=== PATIENT | female | born 1960 | race Caucasian/White ===

== ENCOUNTER → 2018-11-26 | Day surgery (SDC) | payer BC ==
[2018-11-20 15:04] VITALS: BMI 26.1
[~2018-11-26] MED LIST: ACETAMINOPHEN 1000 MG/100 ML VIAL (NON FORMULARY) IVPB ONE; ACETAMINOPHEN INJECTION 100 ML IVPB ONE; DEXAMETHASONE SOD PHOSPHATE 4 MG/1 ML VIAL ONE; GLYCOPYRROLATE 0.2 MG/1 ML VIAL ONE; KETAMINE HCL 500 MG/10 ML VIAL ONE; KETOROLAC TROMETHAMINE 30 MG/1 ML VIAL ONE; LACTATED RINGERS SOLUTION 1,000 ML IV SCH; MIDAZOLAM HCL 2 MG/2 ML SINGLE DOSE VIAL ONE; NEOSTIGMINE METHYLSULFATE 0.5 MG/ML - 10 ML MDV ONE; ONDANSETRON 4 MG/2 ML VIAL IVPB PRN; ONDANSETRON 4 MG/2 ML VIAL IVPUSH PRN; ONDANSETRON 4 MG/2 ML VIAL ONE; PROMETHAZINE HCL 25 MG/1 ML VIAL IVPUSH PRN; PROPOFOL 20 ML ONE; ROCURONIUM BROMIDE 50 MG/5 ML SYRINGE ONE; SEVOFLURANE 250 ML BTL ONE; ceFAZolin SODIUM 1 GM VIAL ONE; ePHEDrine SULFATE 50 MG/1 ML AMPULE ONE; fentaNYL CITRATE 250 MCG/5 ML VIAL ONE; oxyCODONE HCL 5 MG TABLET PO PRN
--- NOTE | 2018-11-26 19:19 | OP ---
Operative Note - Note: Operative Date: 11/26/18 Pre-Operative Diagnosis: ruptured breast implant and bilateral capsular contracture Operation: bialteral capsulectomy with implant removal and mastopexy Findings: above Post-Operative Diagnosis: Same as Pre-op Surgeon: Stuart Vides Labor Supervisor: Raghavendra Nino Anesthesia: General Operative Report Dictated: Yes
[2018-11-26 19:30] VITALS: TEMP 97.6
[2018-11-26 19:59] VITALS: BP 109/63; PULSE 85
--- NOTE | 2018-11-26 23:44 | OP ---
DATE OF OPERATION: 11/26/2018 TITLE OF PROCEDURE: Bilateral periprosthetic capsulectomy, right sided removal of intact mammary prosthesis, left sided removal of mammary prosthetic components and free silicone from a ruptured implant. Bilateral mastopexy. ATTENDING SURGEON: Stuart Vides M.D. DESCRIPTION OF PROCEDURE: Patient seen in the holding area. The patient is marked for nipple to be sited at 20.5 cm from the sternal notch bilaterally. Circumvertical mastopexy is planned. The patient is counseled on risks, benefits, and alternatives to the procedure including the uncertainty of the nature given the ruptured implant and the extent of the tissue replacement from the longstanding breast prosthesis as well as the incisions resulting scars. She understands and agrees to proceed. The patient is given a gram of Ancef preoperatively, brought to the operating room, placed in a supine position. She was prepped and draped in the standard surgical fashion after anesthesia was given. Timeout was called, patient procedure, side, sites were verified. At this point, attention was first directed toward the right side where the vertical limb of the planned circumvertical mastopexy is then made. Dissection carried down to the level of the periprosthetic capsule. Capsulotomy is performed, and the implant is removed. This is a textured silicone gel Allergan implant which happens to be one of the implants which are being recalled. The implant capsule is then dissected from the surrounding tissues. The entire complete capsulectomy is performed which leaves a pocket of tissue. Hemostasis is assured and copious irrigation is performed. Skin is tailor tacked. Attention is then directed towards the contralateral side. On the contralateral side, a mirror image procedure is performed with the same incision; however, upon capsulotomy the implant is noted to be ruptured with free floating silicone gel. The implant shell and the free silicone are removed piecemeal. It is also identified where the free silicone is extracapsular and dissected posterior to the capsule. This is likewise removed. It should also be noted that a secondary capsule has developed where this free silicone has been sitting. A complete capsulectomy has been performed after copious irrigation on this side. 3 L of pulsed lavage normal saline is then used to remove any residual silicone that was in the breast. Hemostasis meticulously achieved. It should be noted that on the right side a segment of stratus that had been placed by a previous surgeon to correct implant malposition was also removed as part of the total capsulectomy. Once hemostasis is achieved and pockets are copiously irrigated, patient is brought to a seated position for confirming the incisions for the mastopexy. Circumvertical technique is planned. The nipple areolar is traced along its existing periareolar scar. The skin in between the periareolar pattern and the nipple areolar is deepithelialized. The nipple is then translocated. A superior pedicle is developed so that medial and lateral pillars and breast tissue are able to be brought together to fill the inferior pole. With the patient in a seated upright position, tailor tacking of skin and breast glandular tissue are performed in order to achieve the desired shape. It should be noted that with removal of the breast implant, the implant had occupied the inferior pole of the breast mound on both sides leaving a deficit of tissue in the inferior pole, rearrangement of the glandular tissue was required in order to restore inferior pole fullness. The skin is then tailor tacked after copious irrigation, hemostasis was achieved. The markings are finalized. A size 10 flat Twin drains are brought out to the inferior most extent of the circumvertical pattern, the drains are secured with 2-0 silk drain suture. This is placed in the capsulectomy pocket. The closure is then performed imbricating the inferior pole with 3-0 Monocryl suture. The vertical limb is closed with a series of interrupted buried deep dermal 3-0 Monocryl suture and a running subcuticular 3-0 Monocryl suture. The circumvertical areolar inset is closed with a series of interrupted buried deep dermal 3-0 Monocryl suture followed by a running subcuticular 4-0 Monocryl suture. The patient was seated in upright position. There was good inferior pole fill on both sides. There is good symmetry and a natural shape to the breast bilaterally. The nipples are pink and viable. Dressings are applied with Steri-Strips, 4x4 gauze, ABD gauze, a surgical bra. The patient was awoken from anesthesia having tolerated procedure well, transferred to recovery without complication. Fernandez [id number]
--- NOTE | 2018-11-28 07:42 | SURG ---
Surgery Instant Printer Operator Note Instant Printer Operator: Raghavendra Nino PA-C (Suzy) Date of Service: 11/26/18 Diagnosis: Bilateral capsular contracture, ruptured left breast implant Procedure: Bilateral periprosthetic capsulectomy, right sided removal of intact mammary prosthesis, left sided removal of mammary prosthetic components and free silicone from a ruptured implant. Bilateral mastopexy I was present for the entirety of the operative procedure. For further detail, please refer to operative report. Visit type - Case Type Case Type: Scheduled - Emergency Emergency Visit: No - New patient This patient is new to me today: Yes Date on this admission: 11/28/18 - Critical Care Critical Care patient: No
--- NOTE | 2018-11-28 16:14 | PATH ---
Surgical Pathology Report Patient Name: [facility]. Rec. #: [id number] /Age/Gender: 1960 (Age: 58) / F Account: [id number] Location: [facility] AMBULATORY Taken: 11/26/2018 Received: 11/26/2018 Reported: 11/28/2018 Physicians: Stuart Vides Specimen(s) Received A: RIGHT BREAST EXPLANT B: RIGHT BREAST CAPSULE C: LEFT BREAST EXPLANT D: LEFT BREAST CAPSULE Clinical History Bilateral capsular contracture, ruptured Final Diagnosis A. EXPLANT, RIGHT BREAST: IMPLANT, DESCRIBED (GROSS EXAMINATION ONLY). B. CAPSULE, RIGHT BREAST, CAPSULECTOMY: FIBROUS CAPSULE SHOWING CHRONIC INFLAMMATION AND FOREIGN BODY GIANT CELL REACTION. SCANT BENIGN BREAST TISSUE. C. EXPLANT, LEFT BREAST: RUPTURED IMPLANT, DESCRIBED (GROSS EXAMINATION ONLY). D. CAPSULE, LEFT BREAST, CAPSULECTOMY: FIBROUS CAPSULE SHOWING REACTIVE SYNOVIAL METAPLASIA, CHRONIC INFLAMMATION AND EXTENSIVE HISTIOCYTIC/GIANT CELL REACTION WITH ASSOCIATED SILICONE MATERIAL. SKELETAL MUSCLE AND FIBROADIPOSE TISSUE. Electronically Signed Kya Zapata M.D. Gross Description A. Received without fixative, labeled "right breast explant" is an intact breast implant having a diameter of 15 cm with a depth of up to 4 cm. For gross examination only. B. Received in formalin, "right breast capsule" are three portions of amanda fibromembranous tissue, consistent with capsule and fibroadipose tissue, ranging from 8.3-11.5 cm in greatest dimension. Burr Grinder tissue is submitted in three cassettes. C. Received without fixative, labeled "left breast explant" is a markedly disrupted breast implant with extruded silicone material, having a diameter of 13.5 cm with a depth of up to 2.8 cm. For gross examination only. D. Received in formalin, labeled "left breast capsule" are multiple portions of fibromembranous tissue, consistent with capsule and fibroadipose tissue, ranging from 1.5-13.5 cm in greatest dimension, with an aggregate of 13.5 x 9.5 x 0.5 cm. Burr Grinder tissue is submitted in three cassettes.
== END | disposition home or self-care (01) ==
LOC: FASU 10:02
PROVIDERS: ATTEND Plastic Surgery
PROC: 0HSV0ZZ Reposition Bilateral Breast, Open Approach (ICD-10-PCS; 2018-11-26)
PROC: 0HPU0JZ Removal of Synthetic Substitute from Left Breast, Open Approach (ICD-10-PCS; principal; 2018-11-26 14:13)
PROC: 0HPT0JZ Removal of Synthetic Substitute from Right Breast, Open Approach (ICD-10-PCS; 2018-11-26 14:13)
DX: T85.41XA Breakdown (mechanical) of breast prosthesis and implant, initial encounter (principal); T85.44XA Capsular contracture of breast implant, initial encounter; Y83.8 Other surgical procedures as the cause of abnormal reaction of the patient, or of later complication, without mention of misadventure at the time of the procedure; Y92.89 Other specified places as the place of occurrence of the external cause
CPT/HCPCS: 88300-TC; 88304-TC; 94760; J0131

== ENCOUNTER 2019-01-17 16:42 | Inpatient (IN) | payer BC ==
[2019-01-17 16:51] VITALS: BMI 24.4
--- NOTE | 2019-01-17 17:19 | PDOC ---
History of Present Illness - General Chief Complaint: Bite Stated Complaint: CAT BITE, NAUSEA Time Seen by Provider: 01/17/19 16:58 History Source: Patient Exam Limitations: No Limitations - History of Present Illness Initial Comments: Pt is a 58 yo F, with PMH of hypothyroidism, who is presenting with worsening redness, pain, and swelling to her L index finger after being bitten by a cat yesterday morning. Pt states she was attempting to capture a stray cat while in her garage yesterday at 8 am, and she was bitten on the tip of the L index finger while trying to grab the cat. Pt states "the finger got swollen up," and she went to [facility] today, where she was started on 600 mg PO clindamycin TID. Pt is UTD on her tetanus vaccine, and the cat is currently in quarantine at the vet's office. Pt took one dose of the medication, which made her have nausea and chills. Pt noticed her finger began to feel "more tight" from the swelling, with the redness extending down to the base of her finger. Pt denies any fevers, headache, vision changes, syncope, chest pain, palpitations, SOB, vomiting, abdominal pain, urinary symptoms, diarrhea/constipation, or leg swelling. Allergies: NKDA PCP: Dr. Ross Social: Pt denies any cigarette, alcohol, or drug use. Pt denies any recent travel or sick contacts. Surgical: R thumb mass removal. Breast implant capsulectomy (rupture repair) Family: no relevant history. 01/17/19 18:45 01/17/19 19:01 Past History - Travel Traveled outside of the country in the last 30 days: No Close contact w/someone who was outside of country & ill: No - Past Medical History Allergies/Adverse Reactions: Allergies Allergy/AdvReac Type Severity Reaction Status Date / Time No Known Drug Allergies Allergy Verified 01/17/19 16:47 Home Medications: Ambulatory Orders Levothyroxine [Synthroid -] 175 mcg PO DAILY 02/20/17 Clindamycin [Cleocin -] 300 mg PO TID 01/17/19 Anemia: No Asthma: (H/O ALLERGY INDUCED ASTHMA,HASN'T HAD INHALER IN 1 YEAR;H/O PNEUMONIA X 5) Cancer: Yes (papillary thyroid) Cardiac Disorders: No CVA: No COPD: No CHF: No Dementia: No Diabetes: No GI Disorders: No Disorders: No HTN: No Hypercholesterolemia: No Liver Disease: No Seizures: No Thyroid Disease: Yes - Surgical History Abdominal Surgery: No Appendectomy: No Cardiac Surgery: No Cholecystectomy: No Lung Surgery: No Neurologic Surgery: No Orthopedic Surgery: No - Psycho Social/Smoking Cessation Hx Smoking History: Never smoked Have you smoked in the past 12 months: No Information on smoking cessation initiated: No Hx Alcohol Use: (social) Drug/Substance Use Hx: No Substance Use Type: Alcohol Hx Substance Use Treatment: No Review of Systems - Review of Systems Able to Perform ROS?: Yes Is the patient limited Estonian proficient: No Constitutional: Yes: Chills, Weight Stable. No: Diaphoresis, Fever, Loss of Appetite, Malaise, Weakness HEENTM: No: Recent change in vision, Nose Congestion, Throat Pain, Throat Swelling, Difficulty Swallowing Respiratory: No: Cough, Orthopnea, Shortness of Breath Cardiac (ROS): No: Chest Pain, Irregular Heart Rate, Lightheadedness, Palpitations, Syncope, Chest Tightness ABD/GI: Yes: Nausea. No: Constipated, Diarrhea, Poor Appetite, Poor Fluid Intake, Vomiting, Abdominal cramping : No: Burning, Dysuria, Frequency, Pain, Urgency Musculoskeletal: Yes: See HPI, Joint Pain, Joint Swelling. No: Back Pain, Neck Pain Integumentary: Yes: See HPI, Erythema. No: Bruising, Rash Neurological: No: Headache, Numbness, Weakness, Unsteady Gait, Dizziness Psychiatric: No: Sleep Pattern Change, Change in Appetite Endocrine: No: Increased Urine, Change in Weight Hematologic/Lymphatic: No: Anemia, Blood Clots, Easy Bleeding, Easy Bruising All Other Systems: Reviewed and Negative *Physical Exam - Vital Signs Last Vital Signs Temp Pulse Resp BP Pulse Ox 98.2 F 99 H 18 138/80 100 01/17/19 16:42 01/17/19 16:42 01/17/19 16:42 01/17/19 16:42 01/17/19 16:42 - Physical Exam HR 99, pt afebrile. Pt appears anxious, but in NAD. Normal body habitus. Pt alert and oriented x3. early childhood associate teacher generally intact, muscular strength and sensation intact. No midline spinal tenderness, step-offs, or crepitus. L index finger held in passive flexion with edema of the finger to the base of MCP. Tenderness with flexion of index finger against both flexion and extension. Erythema of entire L index finger to base of MCP, with no streaking of hand or wrist. Radial pulses intact b/l. Capillary refill <2 secs of fingers b/l. Head normocephalic, atraumatic. Eyes PERRLA, EOMI. Oropharynx without erythema or exudates, no LAD b/l. No nasal congestion. Hearing intact. Clear heart sounds, S1/S2, no JVD, b/l pedal edema, or heart murmur. Clear lung sounds, no respiratory distress, wheezes, crackles, or accessory muscle use. No abdominal or CVA tenderness to palpation, no rebound, no guarding. Abdomen soft, non-distended, and with normoactive bowel sounds. Skin otherwise without jaundice or rash, except as noted above. 01/17/19 18:52 ED Treatment Course - LABORATORY CBC & Chemistry Diagram: 01/17/19 18:00 01/17/19 18:00 Medical Decision Making - Medical Decision Making Pt was seen at bedside, also will be seen by attending Dr. Mcdonald. Pt presenting with complaints of swelling, pain, and redness to the L index finger after sustaining a cat bite. Finger edematous, erythematous, held in passive flexion, with tenderness while flexing against resistance, concerning for flexor tenosynovitis. Provided 4 mg SL zofran, 1 g ofirmev, IV unasyn and vancomycin for improvement of antibiotic coverage (tenosynovitis with cat bite), nausea, and pain. Will continue to reassess pt and monitor for symptomatic improvement. ECG: NSR, intervals WNL (HR 85, WY 148, QRS 78, QTc 428). TWIs in V2, with no significant ST segment changes. No prior for comparison. 01/17/19 18:56 Labs WNL Paged hospitalist team for admission at 18:10. Pending call from admitting team. 01/17/19 19:00 Admitted to [facility] (Dr. Calero). PT stable and receiving abx. 01/17/19 19:06 Discharge - Discharge Information Problems reviewed: Yes Clinical Impression/Diagnosis: Flexor tenosynovitis of finger Condition: Stable - Admission Yes - Follow up/Referral Referrals: Olvin Ross MD [Primary Care Provider] - - Patient Discharge Instructions - Post Discharge Activity
[2019-01-17] MEDS ORDERED: ONDANSETRON *ODT* 4 MG TABLET SL ONE (17:40)
[2019-01-17] MEDS ORDERED: AMPICILLIN NA/SULBACTAM NA 3 GM in SODIUM CHLORIDE 100 ML IVPB ONE (17:45)
[2019-01-17] MEDS ORDERED: ONDANSETRON *ODT* 4 MG TABLET ONE (17:53)
[2019-01-17] MEDS ORDERED: AMPICILLIN NA/SULBACTAM NA 3 GM VIAL ONE (17:53)
[2019-01-17] MEDS ORDERED: VANCOMYCIN 1,000 MG in DEXTROSE 5%-WATER - 250 ML IVPB ONE (17:54)
[2019-01-17] MEDS ORDERED: ACETAMINOPHEN 1000 MG/100 ML VIAL (NON FORMULARY) IVPB ONE (18:06)
--- NOTE | 2019-01-17 18:06 | PDOC ---
Attending Attestation - Resident Resident Name: Anahy Meléndez - ED Attending Attestation I have performed the following: I have examined & evaluated the patient, The case was reviewed & discussed with the resident, I agree w/resident's findings & plan, Exceptions are as noted - HPI HPI: 01/17/19 18:02 58 F with hypothyroidism presenting to ED with pain and swelling to L 2nd digit. Pt was attempting to rescue a stray kitten yesterday when she was bitten on her L index finger. Today, she noticed the finger had become very swollen and painful. Pt went to urgent care and was prescribed Clindamycin, but after taking one dose of it, she felt very ill. Pt denies any F/C. Denies any other injuries. - Physicial Exam PE: 01/17/19 18:05 "GENERAL: Awake, alert, and fully oriented, in no acute distress. HEAD: No signs of trauma EYES: PERRLA, EOMI, sclera anicteric, conjunctiva clear ENT: Auricles normal inspection, hearing grossly normal, nares patent, oropharynx clear without exudates. Moist mucosa NECK: Nontender, no stepoffs, Normal ROM, supple, no lymphadenopathy, JVD, or masses LUNGS: Breath sounds equal, clear to auscultation bilaterally. No wheezes, and no crackles HEART: Regular rate and rhythm, normal S1 and S2, no murmurs, rubs or gallops ABDOMEN: Soft, nontender, normoactive bowel sounds. No guarding, no rebound. No masses EXTREMITIES: + L 2nd digit with puncture wound to fingertip, + edema and erythema extending to palm, + pain with passive extension of finger NEUROLOGICAL: Cranial nerves II through XII intact. 5/5 strength and sensation in all extremities, Normal speech, normal gait, normal cerebellar function SKIN: Warm, Dry, normal turgor, no rashes or lesions noted. - Medical Decision Making 01/17/19 18:06 58 F with likely flexor tenosynovitis of L 2nd finger due to cat bite. - Labs - IV abx - Hand c/s
[2019-01-17] MEDS ORDERED: VANCOMYCIN 1,000 MG VIAL (RESTRICTED TO ID ONLY) ONE (18:13)
[2019-01-17 18:18] LABS: EOS % 0.2 % (0-4.5); HEMOGLOBIN 13.2 GM/dl (10.7-15.3)
[2019-01-17 18:21] LABS: BASO % 1.5 % (0-2.0); HEMATOCRIT 39.7 % (32.4-45.2); LYMPH % 8.3 % (8-40); MCH 29.7 pg (25.7-33.7); MCHC 33.2 g/dl (32.0-36.0); MEAN CELL VOLUME 89.7 fl (80-96); MEAN PLT VOLUME 10.1 fl (7.5-11.1); MONO % 0.3 % (3.8-10.2); NEUT % 89.7 % (42.8-82.8); PLATELET COUNT 156 K/MM3 (134-434); RBC 4.43 M/mm3 (3.60-5.2); RDW 12.1 % (11.6-15.6); WHITE BLOOD COUNT 8.8 K/mm3 (4.0-10.8)
[2019-01-17 18:27] LABS: ALBUMIN 3.9 g/dl (3.4-5.0); BILIRUBIN,TOTAL 0.8 mg/dl (0.2-1); CREATININE 0.6 mg/dl (0.55-1.3); POTASSIUM 3.7 mmol/L (3.5-5.1); TOT PROT 6.5 g/dl (6.4-8.2)
[2019-01-17 18:58] LABS: CALCIUM 8.9 mg/dl (8.5-10)
[2019-01-17] MEDS ORDERED: ACETAMINOPHEN INJECTION 100 ML IVPB ONE (19:22)
[2019-01-18] MEDS: AMPICILLIN NA/SULBACTAM NA 3 GM in SODIUM CHLORIDE 100 ML IVPB SCH ×4 (02:19→16:40)
[2019-01-18] MEDS ORDERED: AMPICILLIN NA/SULBACTAM NA 3 GM VIAL ONE ×3 (03:12→15:19)
[2019-01-18] MEDS ORDERED: SODIUM CHLORIDE 100 ML IVPB ONE ×3 (03:12→15:19)
[2019-01-18] MEDS ORDERED: LEVOTHYROXINE NA 75 MCG TABLET (FP) ONE (05:28)
[2019-01-18] MEDS ORDERED: LEVOTHYROXINE NA 100 MCG TABLET (FP) ONE (05:28)
[2019-01-18] MEDS ORDERED: ACETAMINOPHEN 325 MG TABLET (FP) PO PRN (05:34)
[2019-01-18] MEDS ORDERED: ACETAMINOPHEN 1000 MG/100 ML VIAL (NON FORMULARY) IVPB ONE (05:46)
[2019-01-18] MEDS ORDERED: LEVOTHYROXINE 100 MCG, LEVOTHYROXINE 75 MCG PO SCH (07:00)
--- NOTE | 2019-01-18 08:07 | HP ---
CHIEF COMPLAINT: Cat bite to finger PCP: Dr. Ross HISTORY OF PRESENT ILLNESS: 58 year-old female with a PMH significant for hypothyroidism, presented to the ED for evaluation of a cat bite to her left index finger which occurred on 01/16 at 8:00am (~30 hours prior to presentation). Patient was attempting to collect a stray cat that was in her garage and the cat bit her on the tip of her left index finger. On 01/17 the finger swelled up and patient went to an urgent care center where she was started on PO clindamycin. Patient took one dose and shortly thereafter developed nausea and chills. The finger continued to swell and redness extended down to the base of the finger so patient came to the ED. Patient denies any further episodes of sweats, chills. ER course was notable for: (1) Vanc 1g x 1; unasyn 3g x 1 Recent Travel: No PAST MEDICAL HISTORY: Hypothyroidism PAST SURGICAL HISTORY: Right thumb mass removal Breast implant capsulectomy (rupture repair) Social History: works as a nurse, former ICU nurse at [employer] Smoking: no Alcohol: no Drugs: no Family history: non-contributory Allergies No Known Drug Allergies Allergy (Verified 01/17/19 16:47) HOME MEDICATIONS: Home Medications Medication Instructions Recorded Levothyroxine [Synthroid -] 175 mcg PO DAILY 02/20/17 Clindamycin [Cleocin -] 300 mg PO TID 01/17/19 REVIEW OF SYSTEMS CONSTITUTIONAL: Absent: fever, chills, diaphoresis, generalized weakness, malaise, loss of appetite, weight change HEENT: Absent: rhinorrhea, nasal congestion, throat pain, throat swelling, difficulty swallowing, mouth swelling, ear pain, eye pain, visual changes CARDIOVASCULAR: Absent: chest pain, syncope, palpitations, irregular heart rate, lightheadedness , peripheral edema RESPIRATORY: Absent: cough, shortness of breath, dyspnea with exertion, orthopnea, wheezing, stridor, hemoptysis GASTROINTESTINAL: Absent: abdominal pain, abdominal distension, nausea, vomiting, diarrhea, constipation, melena, hematochezia GENITOURINARY: Absent: dysuria, frequency, urgency, hesitancy, hematuria, flank pain, genital pain MUSCULOSKELETAL: Absent: myalgia, arthralgia, joint swelling, back pain, neck pain SKIN: +pain, swelling, redness left index finger Absent: rash, itching, pallor HEMATOLOGIC/IMMUNOLOGIC: Absent: easy bleeding, easy bruising, lymphadenopathy, frequent infections ENDOCRINE: Absent: unexplained weight gain, unexplained weight loss, heat intolerance, cold intolerance NEUROLOGIC: Absent: headache, focal weakness or paresthesias, dizziness, unsteady gait, seizure, mental status changes, bladder or bowel incontinence PSYCHIATRIC: Absent: anxiety, depression, suicidal or homicidal ideation, hallucinations. PHYSICAL EXAMINATION Vital Signs - 24 hr 01/17/19 01/17/19 01/17/19 16:42 18:08 19:28 Temperature 98.2 F 98.0 F 99 F Pulse Rate 99 H 88 Pulse Rate [ 89 Left Apical] Respiratory 18 18 18 Rate Blood Pressure 138/80 109/58 L Blood Pressure 109/63 [Right Arm] O2 Sat by Pulse 100 93 L 98 Oximetry (%) 01/17/19 01/17/19 01/17/19 19:55 22:00 23:00 Temperature 98.0 F 97.9 F Pulse Rate 88 88 Pulse Rate [ Left Apical] Respiratory 18 18 18 Rate Blood Pressure 109/58 L 94/56 L Blood Pressure [Right Arm] O2 Sat by Pulse 93 L 93 L 95 Oximetry (%) 01/18/19 03:00 Temperature 98.1 F Pulse Rate 79 Pulse Rate [ Left Apical] Respiratory 18 Rate Blood Pressure 106/49 L Blood Pressure [Right Arm] O2 Sat by Pulse 94 L Oximetry (%) GENERAL: Awake, alert, and fully oriented, in no acute distress. HEAD: Normal with no signs of trauma. EYES: Pupils equal, round and reactive to light, extraocular movements intact, sclera anicteric, conjunctiva clear. No lid lag. EARS, NOSE, THROAT: Ears normal, nares patent, oropharynx clear without exudates. Moist mucous membranes. NECK: Normal range of motion, supple without lymphadenopathy, JVD, or masses. LUNGS: Breath sounds equal, clear to auscultation bilaterally. No wheezes, and no crackles. No accessory muscle use. HEART: Regular rate and rhythm, normal S1 and S2 without murmur, rub or gallop. ABDOMEN: Soft, nontender, not distended, normoactive bowel sounds, no guarding, no rebound, no masses. No hepatomegaly or splenomegaly. MUSCULOSKELETAL: Normal range of motion at all joints. No bony deformities or tenderness. No CVA tenderness. UPPER EXTREMITIES: 2+ pulses, warm, well-perfused. No cyanosis. No clubbing. No peripheral edema. LOWER EXTREMITIES: 2+ pulses, warm, well-perfused. No calf tenderness. No peripheral edema. NEUROLOGICAL: Cranial nerves II-XII intact. Normal speech. Normal gait. PSYCHIATRIC: Cooperative. Good eye contact. Appropriate mood and affect. SKIN: puncture wound to tip of left 2nd digit, +edema, +erythema, +tenderness Laboratory Results - last 24 hr 01/17/19 01/17/19 18:00 18:00 WBC 8.8 RBC 4.43 Hgb 13.2 Hct 39.7 MCV 89.7 MCH 29.7 MCHC 33.2 RDW 12.1 Plt Count 156 MPV 10.1 Absolute Neuts (auto) 7.9 Neutrophils % 89.7 H Lymphocytes % 8.3 Monocytes % 0.3 L Eosinophils % 0.2 Basophils % 1.5 Sodium 138 Potassium 3.7 Chloride 103 Carbon Dioxide 28 Anion Gap 7 L BUN 20.0 H Creatinine 0.6 Est GFR (CKD-EPI)AfAm 115.63 Est GFR (CKD-EPI)NonAf 99.77 Random Glucose 103 Calcium 8.9 Total Bilirubin 0.8 AST 18 ALT 17 Alkaline Phosphatase 56 Total Protein 6.5 Albumin 3.9 ASSESSMENT/PLAN 58 year-old female with a PMH significant for hypothyroidism, presented to the ED for evaluation of a cat bite to her left index finger. Admitted for cellulitis. Cellulitis left second digit secondary to cat bite --seen and evaluated by ID, will treat via PICC line at home with unasyn 3g q6h x 7 days Visit type - Emergency Visit Emergency Visit: Yes ED Registration Date: 01/17/19 Care time: The patient presented to the Emergency Department on the above date and was hospitalized for further evaluation of their emergent condition. - New Patient This patient is new to me today: Yes Date on this admission: 01/18/19 - Critical Care Critical Care patient: No
[2019-01-18 08:14] LABS: BASO % 0.2 % (0-2.0); EOS % 0.7 % (0-4.5); HEMATOCRIT 35.2 % (32.4-45.2); HEMOGLOBIN 12.1 GM/dl (10.7-15.3); MCH 30.9 pg (25.7-33.7); MCHC 34.3 g/dl (32.0-36.0); MEAN PLT VOLUME 10.5 fl (7.5-11.1); MONO % 6.6 % (3.8-10.2); NEUT % 80.5 % (42.8-82.8); PLATELET COUNT 131 K/MM3 (134-434); RBC 3.91 M/mm3 (3.60-5.2); RDW 12.1 % (11.6-15.6); WHITE BLOOD COUNT 8.6 K/mm3 (4.0-10.8)
[2019-01-18 08:21] LABS: ALBUMIN 3.1 g/dl (3.4-5.0); BILIRUBIN,TOTAL 0.9 mg/dl (0.2-1); CALCIUM 8.4 mg/dl (8.5-10); CREATININE 0.7 mg/dl (0.55-1.3); MAGNESIUM 1.9 mg/dL (1.8-2.4); POTASSIUM 3.6 mmol/L (3.5-5.1); TOT PROT 5.3 g/dl (6.4-8.2)
--- NOTE | 2019-01-18 09:39 | PN ---
Progress Note (short form) - Note Progress Note: ID CONSULT DICTATED S/P CAT BITE L INDEX FINGER CELLULITIS L INDEX FINGER ? TENOSYNOVITIS OBTAIN BC, ESR, CRP HAND SURGERY EVALUATION EMPIRIC UNASYN 3GM Q6H ELEVATION, ANALGESICS
[2019-01-18] MEDS ORDERED: PATIENT'S OWN MEDICATION (NON-FORMULARY) (Levothyroxine [Synthroid -] 175 MCG) PO SCH (10:00)
[2019-01-18] MEDS ORDERED: ENOXAPARIN NA (PORCINE) 40 MG/0.4 ML DISP.SYRIN SQ SCH (10:00)
--- NOTE | 2019-01-18 11:23 | CONS ---
INFECTIOUS DISEASE CONSULTATION DATE OF CONSULTATION: DATE OF DICTATION: 01/18/2019 The patient is a 58-year-old female who is evaluated for cellulitis of the left index finger. The patient was attempting to catch a stray kitten when she sustained a bite to the distal aspect of her left index finger. She developed swelling and erythema of the finger. She had presented to an urgent care center where she was prescribed oral clindamycin. Despite the antibiotic therapy, she developed worsening pain and swelling and erythema of the left index finger. She was evaluated in the hospital and was admitted. She was empirically treated with Unasyn. At the present time, she has complaints of pain in the left index finger. She denies any purulent drainage from the wound. The cat has been captured and is under the observation of a die repair. She received tetanus toxoid. PAST MEDICAL HISTORY: Positive for hypothyroidism. ALLERGIES: No known allergies. MEDICATIONS: At the present time include Tylenol, Unasyn, Lovenox, Synthroid. SOCIAL HISTORY: She lives at home. She cares for her elderly mother at home. She is a nonsmoker, occasional EtOH. She is a nurse. SYSTEMS REVIEW: Neurologic: No loss of consciousness, seizure activity, focal weakness. Cardiac: Negative chest pain or palpitations. Respiratory: Negative cough or sputum production. Gastrointestinal: Negative vomiting or diarrhea. Genitourinary: Negative for urinary tract infection. LABORATORY DATA: White count 8.6, hematocrit 35.2, platelets 131. Creatinine 0.7. PHYSICAL EXAMINATION: General: She is awake and alert. She is not acutely toxic appearing. Vital Signs: Temperature 98.1; blood pressure 106/49; pulse 79, regular; respirations 18 per minute. HEENT: Sclerae anicteric. Heart: Sounds S1, S2. Lungs: Clear. Abdomen: Soft and nontender. Extremities: Negative for pedal edema. Left Hand: There is diffuse swelling of the left index finger from the distal aspect to the MCP joint. There is a healing bite wound present at the distal aspect of the left index finger. No purulent drainage. There is no lymphangitic streaking. No crepitus or fluctuance. IMPRESSION: 1. Status post cat bite, left index finger. 2. Cellulitis, left index finger, rule out tenosynovitis. Obtain blood cultures, ESR, C-reactive protein. Hand surgery evaluation. Empiric Unasyn 3 g IV piggyback q.6 hours. Elevation. Analgesics. Observation of the stray kitten. Thank you for the kind referral. TONYA JACOBSON M.D. [id number]
--- NOTE | 2019-01-18 11:29 | DS ---
Physical Exam: SUBJECTIVE: Patient seen and examined OBJECTIVE: Vital Signs Period Temp Pulse Resp BP Sys/Velasquez Pulse Ox Last 24 Hr 97.9 F-99 F 79-99 18-18 94-138/49-80 93-100 PHYSICAL EXAM GENERAL: Awake, alert, and fully oriented, in no acute distress. HEAD: Normal with no signs of trauma. EYES: Pupils equal, round and reactive to light, extraocular movements intact, sclera anicteric, conjunctiva clear. No lid lag. EARS, NOSE, THROAT: Ears normal, nares patent, oropharynx clear without exudates. Moist mucous membranes. NECK: Normal range of motion, supple without lymphadenopathy, JVD, or masses. LUNGS: Breath sounds equal, clear to auscultation bilaterally. No wheezes, and no crackles. No accessory muscle use. HEART: Regular rate and rhythm, normal S1 and S2 without murmur, rub or gallop. ABDOMEN: Soft, nontender, not distended, normoactive bowel sounds, no guarding, no rebound, no masses. No hepatomegaly or splenomegaly. MUSCULOSKELETAL: Normal range of motion at all joints. No bony deformities or tenderness. No CVA tenderness. UPPER EXTREMITIES: 2+ pulses, warm, well-perfused. No cyanosis. No clubbing. No peripheral edema. LOWER EXTREMITIES: 2+ pulses, warm, well-perfused. No calf tenderness. No peripheral edema. NEUROLOGICAL: Cranial nerves II-XII intact. Normal speech. Normal gait. PSYCHIATRIC: Cooperative. Good eye contact. Appropriate mood and affect. SKIN: puncture wound to tip of left 2nd digit, +edema, +erythema, +tenderness LABS Laboratory Results - last 24 hr 01/17/19 01/17/19 01/18/19 18:00 18:00 07:10 WBC 8.8 RBC 4.43 Hgb 13.2 Hct 39.7 MCV 89.7 MCH 29.7 MCHC 33.2 RDW 12.1 Plt Count 156 MPV 10.1 Absolute Neuts (auto) 7.9 Neutrophils % 89.7 H Lymphocytes % 8.3 Monocytes % 0.3 L Eosinophils % 0.2 Basophils % 1.5 ESR 7 Sodium 138 Potassium 3.7 Chloride 103 Carbon Dioxide 28 Anion Gap 7 L BUN 20.0 H Creatinine 0.6 Est GFR (CKD-EPI)AfAm 115.63 Est GFR (CKD-EPI)NonAf 99.77 Random Glucose 103 Calcium 8.9 Magnesium Total Bilirubin 0.8 AST 18 ALT 17 Alkaline Phosphatase 56 Total Protein 6.5 Albumin 3.9 01/18/19 01/18/19 07:47 07:47 WBC 8.6 RBC 3.91 Hgb 12.1 Hct 35.2 MCV 90.0 MCH 30.9 MCHC 34.3 RDW 12.1 Plt Count 131 L MPV 10.5 Absolute Neuts (auto) 6.9 Neutrophils % 80.5 Lymphocytes % 12.0 Monocytes % 6.6 Eosinophils % 0.7 Basophils % 0.2 ESR Sodium 139 Potassium 3.6 Chloride 106 Carbon Dioxide 25 Anion Gap 8 BUN 13.0 Creatinine 0.7 Est GFR (CKD-EPI)AfAm 109.91 Est GFR (CKD-EPI)NonAf 94.84 Random Glucose 101 Calcium 8.4 L Magnesium 1.9 Total Bilirubin 0.9 AST 24 ALT 28 Alkaline Phosphatase 51 Total Protein 5.3 L Albumin 3.1 L HOSPITAL COURSE: Date of Admission:01/17/19 Date of Discharge: 01/18/19 58 year-old female with a PMH significant for hypothyroidism, presented to the ED for evaluation of a cat bite to her left index finger. Admitted for cellulitis. Cellulitis left second digit secondary to cat bite --seen and evaluated by ID, will treat via PICC line at home with unasyn 3g q6h x 7 days Minutes to complete discharge: 35 Discharge Summary Problems reviewed: Yes Reason For Visit: CAT BITE OF FINGER/FLEXOR TENOSYNOVITIS OF FINGER Current Active Problems Flexor tenosynovitis of finger (Acute) Condition: Stable - Instructions Referrals: Olvin Ross MD [Primary Care Provider] - - Home Medications Comprehensive Discharge Medication List: Ambulatory Orders Levothyroxine [Synthroid -] 175 mcg PO DAILY 02/20/17 Clindamycin [Cleocin -] 300 mg PO TID 01/17/19 This patient is new to me today: No Emergency Visit: Yes ED Registration Date: 01/17/19 Care time: The patient presented to the Emergency Department on the above date and was hospitalized for further evaluation of their emergent condition. Critical Care patient: No - Discharge Referral Referred to [facility] Med [facility] Yes Physician Referral: Olvin Ross MD (Int Med)
--- NOTE | 2019-01-18 11:30 | EKG ---
Test Reason : Blood Pressure : / mmHG Vent. Rate : 085 BPM Atrial Rate : 085 BPM P-R Int : 148 ms QRS Dur : 078 ms QT Int : 360 ms P-R-T Axes : 065 052 056 degrees QTc Int : 428 ms NORMAL SINUS RHYTHM NONSPECIFIC ST ABNORMALITY NO PREVIOUS ECGS AVAILABLE Confirmed by TONYA STEWART MD ([id number]) on 01/18/2019 11:30:16 AM Referred By: DR NGUYEN Confirmed By:TONYA STEWART MD
[2019-01-18] MEDS ORDERED: IBUPROFEN 800 MG/8 ML IJ IVPB ONE (12:55)
[2019-01-18] MEDS ORDERED: ACETAMINOPHEN 1000 MG/100 ML VIAL (NON FORMULARY) IVPB PRN (12:55)
[2019-01-18] MEDS: KETOROLAC TROMETHAMINE 30 MG/1 ML VIAL IVPUSH ONE ×2 (13:14→14:39)
[2019-01-18] MEDS ORDERED: IBUPROFEN 400 MG TABLET (FP) PO ONE (13:26)
[2019-01-18 14:11] VITALS: BP 115/58; PULSE 81; TEMP 98.2
--- NOTE | 2019-01-18 16:32 | CON.ORTH ---
Consult - History of Present Illness History of Present Illness: 58-year-old female with left index finger infection. Patient was bit by a cat in her garage (stray cat). Patient was initially treated at an urgent care with by mouth antibiotics after developing redness but to the antibiotics made her sick and she continued to worsen. She presented to the ER and was started on IV antibiotics. She notes that since last evening, her finger is feeling somewhat better. She notes pain and limited range of motion. She has no numbness or tingling. No previous injuries to this area. She is not having any fever or chills at this time. - History Source History Provided By: Patient, Medical Record Limitations to Obtaining History: No Limitations - Past Medical History Endocrine: Yes: Hypothyroidism - Alcohol/Substance Use Hx Alcohol Use: (social) - Smoking History Smoking history: Never smoked Have you smoked in the past 12 months: No Home Medications - Allergies Allergies/Adverse Reactions: Allergies Allergy/AdvReac Type Severity Reaction Status Date / Time No Known Drug Allergies Allergy Verified 01/17/19 16:47 - Home Medications Home Medications: Ambulatory Orders Levothyroxine [Synthroid -] 175 mcg PO DAILY 02/20/17 Clindamycin [Cleocin -] 300 mg PO TID 01/17/19 Review of Systems - Review of Systems Constitutional: reports: Chills. denies: Fever Eyes: denies: Blurred Vision, Photophobia HENT: denies: Throat Pain Respiratory: denies: Cough Physical Exam for Ortho Vital Signs: Vital Signs Temperature 98.2 F 01/18/19 14:09 Pulse Rate 81 01/18/19 14:09 Respiratory Rate 16 01/18/19 14:09 Blood Pressure 115/58 L 01/18/19 14:09 O2 Sat by Pulse Oximetry (%) 99 01/18/19 14:09 Constitutional: Yes: Well Nourished, No Distress, Calm Extremities: Yes: Other (L hand shows mild swelling index finger with erythema from the MCP to the tip. Small puncture wound at tip. Moderate limitation to motion. Mild discomfort on passive stretch. No fusiform swelling. Slight tenderness at A1 allen site. FDS FDP ED intact. Sensation intact to LT. CR<2 ) Labs: CBC, BMP 01/18/19 07:47 01/18/19 07:47 Problem List - Problems (1) Cellulitis of finger of left hand Assessment/Plan: I reviewed today's findings with Paula advised that her symptoms are consistent with infection of the hand she does have some signs which could represent a flexor tenosynovitis, however, I am recommending conservative care and close observation at this time her flexor tenderness is mild, her swelling is not fusiform, her pain on passive extension is mild and her finger is not flexed more than resting posture continue iv abx as she has seen improvement since starting last night I advised her that I would recommend staying at the hospital for additional observation but she needs to return to her elderly mother while home, elevate, keep on splint (placed today) marked out edges of erythema if pain, swelling, erythema worsen, if she develops fever, chills, she should come immediately back to the ER advised that if this progresses to FTS, it can cause permanent damage to the finger especially if treatment is delayed, even surgical care does not guarantee full resolution of symptoms will plan to follow up Monday as long as her symptoms are improving Code(s): L03.012 - CELLULITIS OF LEFT FINGER
--- NOTE | 2019-01-18 16:33 | PROC ---
Central Line Insertion - Procedure Note Midline Catheter Placement TIME OUT performed prior to this procedure with verbal confirmation of correct patient identity, correct side, agreement of the procedure, correct patient position, availability of necessary equipment. The consent form is complete and accurate. Risk of possible infection, bleeding have been discussed with the patient. Safety precautions based on patient history or medication use has been addressed. Indication: Other (Outpatient antibiotics) Consent on Chart: Yes Central Line: Other (Midline catheter placement) Position: Supine Area prepped with Chlorhexidine solution then draped using sterile barrier protection. Anesthesia: Lidocaine 1% Technique used: Modified Seldinger Ultrasound Guided Assistance: Yes Site: Right Cephalic vein Dark venous non-pulsatile flow noted from hub of needle. The catheter was introduced. Guide wire removed intact. Each port aspirated then flushed with sterile normal saline and capped. Line secured to skin with secure device. Biopatch placed around base of line. Sterile occlusive dressing applied. No complications. Patient tolerated the procedure well. Catheter length 20cm Catheter is ready for immediate use. Catheter is not centrally located, peripheral access only.
== END 2019-01-18 18:04 | disposition home or self-care (01) | DRG 558 ==
LOC: FER 16:42 → FM/S 18:08
PROVIDERS: ADMIT Internal Medicine; ATTEND Nurse Practitioner Acute Care
PROC: 05HD33Z Insertion of Infusion Device into Right Cephalic Vein, Percutaneous Approach (ICD-10-PCS; principal; 2019-01-17)
PROC: B51MZZA Fluoroscopy of Right Upper Extremity Veins, Guidance (ICD-10-PCS; 2019-01-17)
DX: M65.822 Other synovitis and tenosynovitis, left upper arm (principal); E03.9 Hypothyroidism, unspecified; L03.012 Cellulitis of left finger; S61.251A Open bite of left index finger without damage to nail, initial encounter; W55.01XA Bitten by cat, initial encounter; Y92.89 Other specified places as the place of occurrence of the external cause
CPT/HCPCS: 36415; 80053; 83735; 85025; 85651; 86140; 87040; 93005; 99285-25; J0131; Q0162

== ENCOUNTER 2022-01-15 13:41 | Inpatient (IN) | payer BC ==
[2022-01-15] MEDS ORDERED: ALBUTEROL SO4 0.083% IH SOL 2.5 MG/3 ML VIAL.NEB. NEB ONE ×2 (14:19→14:25)
[2022-01-15] MEDS ORDERED: predniSONE 20 MG TABLET (UD) PO ONE (14:19)
[2022-01-15] MEDS ORDERED: predniSONE 20 MG TABLET (UD) ONE (14:25)
[2022-01-15] MEDS ORDERED: ACETAMINOPHEN 500 MG TABLET (FP) PO ONE (14:26)
[2022-01-15] MEDS ORDERED: ACETAMINOPHEN 500 MG TABLET (FP) ONE (14:26)
[2022-01-15] MEDS ORDERED: SODIUM CHLORIDE 1,000 ML IV STA (15:32)
[2022-01-15 16:05] LABS: HEMATOCRIT 35.5 % (32.4-45.2); HEMOGLOBIN 12.3 G/dL (10.7-15.3); MCH 30.7 pg (25.7-33.7); MCHC 34.5 g/dl (32.0-36.0); MEAN CELL VOLUME 88.9 fl (80-96); MEAN PLT VOLUME 9.3 fl (7.5-11.1); PLATELET COUNT 165.5 10^3/uL (134-434); RBC 3.99 10^6/uL (3.60-5.2); RDW 14.1 % (11.6-15.6); WHITE BLOOD COUNT 9.3 10^3/uL (4.0-10.8)
[2022-01-15 16:18] LABS: ALBUMIN 3.2 g/dl (3.4-5.0); BILIRUBIN,TOTAL 0.9 mg/dl (0.2-1); CALCIUM 8.6 mg/dl (8.5-10); CREATININE 0.6 mg/dl (0.55-1.3); TOT PROT 6.2 g/dl (6.4-8.2)
[2022-01-15 17:12] LABS: PLATELET ESTIMATE ADEQUATE
[2022-01-15] MEDS: ALBUTEROL SO4 2.5/IPRATROPIUM 0.5 INH SOL 3 ML VIAL.NEB. NEB PRN (21:27)
[2022-01-15] MEDS: HEPARIN NA (PORCINE) 5,000 UNITS/ML 1ML VIAL SQ SCH (21:38)
[2022-01-15] MEDS ORDERED: FLU VACC QS2022-23(6MOS UP)/PF 60 MCG/0.5 ML SYRINGE IM ONE (22:00)
[2022-01-15] MEDS: guaiFENesin 200 MG/10 ML 10 ML UNIT-DOSE CUPS PO PRN (23:37)
[2022-01-16] MEDS ORDERED: ACETAMINOPHEN 325 MG TABLET (FP) PO PRN (05:32)
[2022-01-16] MEDS: SODIUM CHLORIDE 1,000 ML IV SCH (06:25)
[2022-01-16] MEDS: LEVOTHYROXINE NA 150 MCG TABLET PO SCH (07:23)
[2022-01-16 08:28] LABS: HEMATOCRIT 32.5 % (32.4-45.2); HEMOGLOBIN 10.9 G/dL (10.7-15.3); MCH 29.8 pg (25.7-33.7); MCHC 33.5 g/dl (32.0-36.0); MEAN CELL VOLUME 88.9 fl (80-96); MEAN PLT VOLUME 10.1 fl (7.5-11.1); PLATELET COUNT 168.4 10^3/uL (134-434); RBC 3.66 10^6/uL (3.60-5.2); RDW 14.5 % (11.6-15.6); WHITE BLOOD COUNT 8.5 10^3/uL (4.0-10.8)
[2022-01-16 09:19] LABS: ALBUMIN 2.7 g/dl (3.4-5.0); BILIRUBIN,TOTAL 0.5 mg/dl (0.2-1); CALCIUM 8.1 mg/dl (8.5-10); CREATININE 0.5 mg/dl (0.55-1.3); TOT PROT 5.4 g/dl (6.4-8.2)
[2022-01-16] MEDS: HEPARIN NA (PORCINE) 5,000 UNITS/ML 1ML VIAL SQ SCH ×2 (09:38→21:16)
[2022-01-16] MEDS: CEFTRIAXONE 1 GM in DEXTROSE 5%-WATER - 50 ML IVPB SCH (11:12)
[2022-01-16] MEDS: AZITHROMYCIN IVPB 500 MG/250 ML BAG IVPB SCH (11:13)
[2022-01-16 12:55] LABS: PLATELET ESTIMATE ADEQUATE
[2022-01-17] MEDS: LEVOTHYROXINE NA 150 MCG TABLET PO SCH (06:08)
[2022-01-17] MEDS: ALBUTEROL SO4 2.5/IPRATROPIUM 0.5 INH SOL 3 ML VIAL.NEB. NEB PRN ×2 (07:30→14:25)
[2022-01-17] MEDS: SODIUM CHLORIDE 1,000 ML IV SCH (07:31)
[2022-01-17 08:54] LABS: ALBUMIN 2.8 g/dl (3.4-5.0); BILIRUBIN,TOTAL 0.7 mg/dl (0.2-1); CALCIUM 8.7 mg/dl (8.5-10); CREATININE 0.7 mg/dl (0.55-1.3); TOT PROT 5.8 g/dl (6.4-8.2)
[2022-01-17] MEDS: CEFTRIAXONE 1 GM in DEXTROSE 5%-WATER - 50 ML IVPB SCH (09:28)
[2022-01-17] MEDS: AZITHROMYCIN IVPB 500 MG/250 ML BAG IVPB SCH (09:34)
[2022-01-17] MEDS: HEPARIN NA (PORCINE) 5,000 UNITS/ML 1ML VIAL SQ SCH (09:34)
[2022-01-17] MEDS: guaiFENesin 200 MG/10 ML 10 ML UNIT-DOSE CUPS PO PRN (09:34)
[2022-01-17 11:11] LABS: HEMOGLOBIN 12.7 GM/dL (10.7-15.3); MCH 29.5 pg (25.7-33.7); MCHC 33.3 g/dl (32.0-36.0); MEAN CELL VOLUME 88.5 fl (80-96); MEAN PLT VOLUME 9.6 fl (7.5-11.1); PLATELET COUNT 236 10^3/uL (134-434); RDW 13.6 % (11.6-15.6)
[2022-01-17 11:51] LABS: ANISOCYTOSIS 0; HELMET CELLS 0; HOWELL-JOLLY BODIES 0; MACROCYTOSIS 0; OVALOCYTE 0; ROULEAU 0; SICKELED CELLS 0; TARGET CELLS 0; TEAR DROP CELLS 0; TOXIC GRANULATION 0
[2022-01-17 16:23] VITALS: BMI 25.2
[2022-01-18] MEDS: LEVOTHYROXINE NA 150 MCG TABLET PO SCH (06:27)
[2022-01-18 06:44] VITALS: TEMP 98.5
[2022-01-18] MEDS ORDERED: POLYETHYLENE GLYCOL (HEALTHYLAX) 3350 17 GM PACKET PO SCH (10:00)
[2022-01-18] MEDS ORDERED: levoFLOXacin 750 MG TABLET PO SCH (10:00)
[2022-01-18] MEDS ORDERED: SODIUM CHLORIDE NASAL SPRAY 44 ML BOTTLE NS PRN (10:02)
[2022-01-18] MEDS: HEPARIN NA (PORCINE) 5,000 UNITS/ML 1ML VIAL SQ SCH (10:22)
[2022-01-18] MEDS ORDERED: LORATADINE 10 MG TABLET PO SCH (10:30)
[2022-01-18 10:48] LABS: ALBUMIN 2.7 g/dl (3.4-5.0); BILIRUBIN,TOTAL 0.7 mg/dl (0.2-1); TOT PROT 5.6 g/dl (6.4-8.2)
[2022-01-18 10:56] LABS: BILIRUBIN,DIRECT 0.1 mg/dL (0.0-0.2)
[2022-01-18 14:05] VITALS: BP 120/67; PULSE 93; RESP 16
== END 2022-01-18 17:20 | disposition home or self-care (01) | DRG 195 ==
LOC: FER 13:41 → FM/S 17:27
PROVIDERS: ADMIT Internal Medicine; ATTEND Internal Medicine
DX: J18.9 Pneumonia, unspecified organism (principal); E03.9 Hypothyroidism, unspecified; R09.02 Hypoxemia; J47.9 Bronchiectasis, uncomplicated; R94.5 Abnormal results of liver function studies; Z85.850 Personal history of malignant neoplasm of thyroid
CPT/HCPCS: 0241U-QW; 36415; 71045-TC-FY; 71275-TC; 80053; 80076; 83605; 85025; 85027; 87040; 87070; 87205; 87899; 93005; 94640; 99285-25; G0008; Q2036; Q9967